=== PATIENT | female | born 1990 | race Asian ===

== ENCOUNTER 2018-11-16 14:03 | Day surgery (SDC) | payer BC ==
[~2018-11-16] VITALS: Ht 162.6 cm; Wt 73.9 kg
[2018-11-16 14:28] VITALS: BP 120/84
[2018-11-16] MEDS ORDERED: LACTATED RINGERS 1,000 ML IV SCH (14:29)
[2018-11-16 14:53] LABS: BASOPHILS # (AUTO) 0.02 x10^3/uL (0-0.1); BASOPHILS % (AUTO) 0 % (0-1); EOSINOPHILS # (AUTO) 0.13 x10^3/uL (0-0.4); EOSINOPHILS % (AUTO) 2 % (1-7); LYMPHOCYTES # (AUTO) 1.52 x10^3/uL (1-3.4); LYMPHOCYTES % (AUTO) 21 % (22-44); MD NO; MEAN CORPUSCULAR HEMOGLOBIN 31.5 pg (27.0-34.8); MEAN CORPUSCULAR HGB CONC 34.6 g/dL (32.4-35.8); MEAN PLATELET VOLUME 7.9 fL (7.4-10.4); MONOCYTES # (AUTO) 0.41 x10^3/uL (0.2-0.8); MONOCYTES % (AUTO) 6 % (2-9); NEUTROPHILS # (AUTO) 5.09 x10^3/uL (1.8-6.8); NEUTROPHILS % (AUTO) 71 % (42-75); PLATELET COUNT 239 x10^3/uL (130-400); RED BLOOD COUNT 4.27 x10^6/uL (3.82-5.3); RED CELL DISTRIBUTION WIDTH 12.7 % (9.6-15.2)
[2018-11-16] MEDS ORDERED: NO MEDICATION (14:57)
[2018-11-16] MEDS ORDERED: MIDAZOLAM 1 MG/ML, 2ML ONE (14:57)
[2018-11-16] MEDS ORDERED: FENTANYL PF 100 MCG/2ML ONE (14:57)
[2018-11-16] MEDS ORDERED: CEFAZOLIN 1,000 MG ONE (15:18)
[2018-11-16] MEDS ORDERED: ONDANSETRON 2MG/ML, 2ML ONE (15:18)
[2018-11-16] MEDS ORDERED: DEXAMETHASONE 4 MG/ML, 1ML ONE (15:18)
[2018-11-16] MEDS ORDERED: MISOPROSTOL 200 MCG TABLET ONE (15:37)
[2018-11-16] MEDS ORDERED: EPINEPHRINE 1 MG/ML, 1ML ONE (15:37)
[2018-11-16] MEDS ORDERED: BUPIVACAINE/PF 0.25% ONE (15:37)
[2018-11-16] MEDS ORDERED: SILVER NITRATE STICK TP ONE (15:40)
[2018-11-16] MEDS ORDERED: METHYLERGONOVINE 0.2 MG/ML IM ONE (15:44)
[2018-11-16] MEDS ORDERED: KETOROLAC 30 MG/1 ML ONE (15:47)
[2018-11-16] MEDS ORDERED: PROPOFOL 10 MG/ML, 20ML ONE (15:47)
[2018-11-16] MEDS ORDERED: MORPHINE SULFATE 4 MG/ML, 1ML IVPush PRN (16:00)
[2018-11-16] MEDS ORDERED: PROMETHAZINE 25 MG/ML, 1ML IV PRN (16:00)
[2018-11-16] MEDS ORDERED: OXYcodone 5 MG/5 ML ORAL.SOL UDC PO PRN (16:00)
[2018-11-16] MEDS ORDERED: MEPERIDINE/PF 25MG/0.5ML IVPush PRN (16:00)
[2018-11-16] MEDS ORDERED: HYDROmorphone 2 MG/ML, 1ML IVPush PRN (16:00)
[2018-11-16] MEDS ORDERED: ACETAMINOPHEN 325 MG TABLET PO PRN (16:00)
[2018-11-16] MEDS ORDERED: ONDANSETRON 2MG/ML, 2ML IVPush PRN (16:00)
[2018-11-16] MEDS ORDERED: IBUPROFEN 600 MG TABLET PO SCH (16:00)
[2018-11-16] MEDS ORDERED: FENTANYL PF 100 MCG/2ML IV PRN (16:00)
[2018-11-16] MEDS ORDERED: LABETALOL 5MG/ML, 20ML IV PRN (16:00)
[2018-11-16] MEDS ORDERED: hydrALAzine 20 MG/ML, 1ML IV PRN (16:00)
[2018-11-16] MEDS ORDERED: ONDANSETRON 2MG/ML, 2ML IV PRN (16:00)
[2018-11-16] MEDS ORDERED: OXYcodone/APAP 5/325MG TABLET PO PRN (16:00)
[2018-11-16] MEDS ORDERED: KETOROLAC 30 MG/1 ML IVPush PRN (16:00)
[2018-11-16] MEDS ORDERED: PROMETHAZINE 25 MG/ML, 1ML IVPush ONE (18:00)
== END 2018-11-16 19:05 | disposition home or self-care (01) ==
LOC: OR 14:03
PROVIDERS: ATTEND Obstetrics & Gynecology
DX: O02.1 Missed abortion (principal); Z3A.01 Less than 8 weeks gestation of pregnancy
CPT/HCPCS: 36415; 59820; 85025; 86850; 86900; 88305; J0171; J0690; J1100; J1885; J2210; J2250; J2405; J2704; J3010; J3490; J7120